=== PATIENT | female | born 1965 | race Caucasian/White ===

== ENCOUNTER 2023-04-19 13:59 | Emergency (ER) | payer OTHER ==
[~2023-04-19] VITALS: Ht 170.2 cm; Wt 90.7 kg
--- NOTE | 2023-04-19 14:05 | NUR ---
[id number] FROM HOME FOR LUE LACERATION S/P GETTING CAUGHT IN A DOOR SCREEN STATES NOT UTD W/ TDAP.
--- NOTE | 2023-04-19 14:20 | NUR ---
AT BEDSIDE FOR EVAL.
[2023-04-19] MEDS ORDERED: LIDOCAINE 1%-EPI 1:100,000 20 ML VIAL ONE (14:23)
[2023-04-19] MEDS ORDERED: TDAP [DIPH/PERTUSSIS/TET] 0.5 ML VIAL IM ONE ×2 (14:30→15:06)
--- NOTE | 2023-04-19 15:00 | NUR ---
SUTURE DONE BY MD WITH LIDOCAINE 1% EPI.
--- NOTE | 2023-04-19 15:20 | NUR ---
Patient discharged to home in stable condition. Written and verbal after care instructions given. Patient verbalizes understanding of instruction.
[2023-04-19 16:03] VITALS: BP 110/75
== END 2023-04-19 15:20 | disposition home or self-care (01) ==
LOC: ER 14:30
DX: S41.112A Laceration without foreign body of left upper arm, initial encounter (principal); F32.A Depression, unspecified; W20.8XXA Other cause of strike by thrown, projected or falling object, initial encounter; Y93.89 Activity, other specified; Y92.89 Other specified places as the place of occurrence of the external cause; Y99.8 Other external cause status
CPT/HCPCS: 99283; 12004; 90471; 90715; A6403; J3490

== ENCOUNTER 2023-04-29 15:33 | Emergency (ER) | payer OTHER ==
[~2023-04-29] VITALS: Ht 152.4 cm; Wt 77.1 kg
[2023-04-29 15:50] VITALS: BP 115/67
[2023-04-29] MEDS ORDERED: BACITRACIN ZINC OINT PACKET 1 EA PACKET TP ONE ×2 (16:16→16:30)
[2023-04-29] MEDS ORDERED: CEPH500C2 PO ×2 (16:18→17:08)
[2023-04-29] MEDS ORDERED: BACI1PAC12 TP ×2 (16:19→17:08)
--- NOTE | 2023-04-29 16:30 | NUR ---
Patient discharged to home in stable condition, ambulating. Written and verbal after care instructions given. Patient verbalizes understanding of instruction.
== END 2023-04-29 16:31 | disposition home or self-care (01) ==
LOC: ER 15:36
DX: S41.112A Laceration without foreign body of left upper arm, initial encounter (principal); L03.114 Cellulitis of left upper limb; W26.8XXA Contact with other sharp object(s), not elsewhere classified, initial encounter; Y93.89 Activity, other specified; Y92.89 Other specified places as the place of occurrence of the external cause; Y99.8 Other external cause status